=== PATIENT | female | born 1965 | race Caucasian/White ===

== ENCOUNTER → 2016-08-07 | Outpatient (CLI) | payer OTHER ==
--- NOTE | 2016-08-08 10:38 | US ---
Procedure: US ABDOMEN Exam Date: 08/07/2016 Ordering Provider: ISIDRO FAIR Clinical Indication: Abdominal pain Comparison: 12/03/2011 Technique: Real-time ultrasonography was obtained over the abdominal viscera and territory service representative images were recorded. Findings: The liver is normal in size and contour. There is normal echogenicity throughout the liver. There are no intrahepatic masses. There is no intrahepatic ductal dilatation. The gallbladder is normal in size and appearance. There are no gallstones. There is no gallbladder wall thickening or pericholecystic fluid. The extrahepatic common duct is normal in size measuring 2 mm. The spleen is normal in size and contour. There is normal internal echogenicity of the spleen. There are no splenic masses. The visualized portions of the pancreas are normal. The aorta has a normal appearance. The right kidney is normal in size and contour. The right kidney measures 10.2 cm in bipolar length. Cortical thickness and echogenicity are normal. There are no masses, calculi, or hydronephrosis. The left kidney is normal in size and contour. The left kidney measures 11.3 cm in bipolar length. Cortical thickness and echogenicity are normal. There are no masses, calculi, or hydronephrosis. There is no ascites. Impression: Negative abdominal ultrasound. Electronically signed by: Raúl May MD 08/08/2016 10:37 AM CDT
--- NOTE | 2016-08-08 15:31 | US ---
EXAM DESCRIPTION: Pelvis Transvaginal CLINICAL HISTORY: 51 years Female, V72.31 COMPARISON: None. FINDINGS: Transvaginal sonography demonstrates a normally positioned uterus through the decompressed bladder with the cervix appearing closed and normal in appearance. The uterus measures 7.5 x 2.3 x 2.4 cm. The endometrial stripe is estimated at 4 mm. The right ovary is 1.9 x 1.9 x 0.9 cm and the left ovary is 3.3 x 1.6 x 2.6 cm. No dominant solid or cystic mass is seen. No free fluid in the cul-de-sac is noted. IMPRESSION: Essentially normal transvaginal pelvic sonography with small normal ovaries and uterus without focal mass. Electronically signed by: Ta Izaguirre MD 08/08/2016 3:29 PM CDT
== END ==
LOC: US 09:26
PROVIDERS: ATTEND Nurse Practitioner Family
DX: R10.84 Generalized abdominal pain (principal); R06.02 Shortness of breath; Z01.419 Encounter for gynecological examination (general) (routine) without abnormal findings

== ENCOUNTER → 2016-10-09 | Outpatient (CLI) | payer OTHER ==
--- NOTE | 2016-10-10 13:42 | MAM ---
EXAM DESCRIPTION: Screening Mammogram,Bilateral CLINICAL HISTORY: 51 yearsFemaleSCREENING. No family history of breast cancer. Postmenopausal. Currently on HRT. Bilateral breast augmentation. COMPARISON: Digital 2-D screening bilateral study 08/30/2015. No prior reports available. TECHNIQUE: Bilateral CC and MLO projection full-field images, and bilateral Robles Implant Displacement images. Digital screening mammographic technique. CAD was utilized. FINDINGS: The breast parenchymal density pattern is: Heterogeneously dense breast tissue, which may obscure small masses. No skin thickening or nipple retraction bilaterally. Bilateral subpectoral saline implants. Implant capsules where seen. Bilateral solitary microcalcifications. No focal, stellate mass or density no focal asymmetry, and no suspicious microcalcifications bilaterally. Stable mammograms compared to the prior study August 2015. IMPRESSION: BI-RADS CATEGORY: 2 - BENIGN FINDINGS. FOLLOW UP: Routine digital bilateral screening, one year interval from September 2016. Written communication explaining the findings and follow-up, will be mailed to the patient and referring health care provider. According to the [employer], yearly mammograms are recommended starting at age 40 and continuing as long as a woman is in good health. Any breast change noted on a breast self-exam should be reported promptly to the patient's healthcare provider. Breast MRI is recommended for women with an approximately 20-25% or greater lifetime risk of breast cancer, including women with a strong family history of breast or ovarian cancer and women who have been treated for Hodgkin's disease. A negative mammographic report should not delay tissue diagnosis in patients with significant clinical history or physical findings. Extremely dense breast tissue limits the sensitivity of digital mammography. Written communication explaining the results and follow-up will be mailed to the patient and referring care provider. Electronically signed by: Karri Goss MD 10/10/2016 1:41 PM CDT Workstation: [id number]
== END ==
LOC: MAMMO 13:30
PROVIDERS: ATTEND Nurse Practitioner Family
DX: Z12.31 Encounter for screening mammogram for malignant neoplasm of breast (principal)

== ENCOUNTER → 2017-09-10 | Outpatient (CLI) | payer OTHER ==
--- NOTE | 2017-09-10 17:13 | MRI ---
EXAM DESCRIPTION: Brain w/o Contrast: MRI. CLINICAL HISTORY: R 49. Headache. COMPARISON: CT scan of the head without contrast 08/04/2006. TECHNIQUE: Multiplanar, high-field MRI unit, multiple diffusion sequences, multiple conventional sequences without contrast. FINDINGS: Bilateral small foci of hyperintense FLAIR and T2-weighted signal in the bilateral periventricular white matter abutting the frontal horns, subcortical white matter right frontal lobe, and subcortical white matter left frontal lobe at the level of the ventricles. Also subcortical white matter right parietal lobe in the frontoparietal sensorimotor region. No diffusion restriction.. No hemorrhage, no cerebral edema, no mass-effect. Small focal lesion similar to the above lesions in the insular cortex or external capsule on the left basal ganglia. Normal signal in the brainstem and cerebellar hemispheres. No hemorrhage, no cerebral edema, no mass-effect. Concordance of the diffusion and non-diffusion sequences with no diffusion restriction. Cortical sulci, ventricles, and other CSF spaces, and the subdural spaces are normally configured. No effacement or displacement. No midline shift. No extra-axial hemorrhage. Normal flow signal void in the major vessels of the chilkat Lester, and the venous sinuses. IACs are symmetric bilaterally. Normal signal in the bilateral mastoid air cells. No mass effect in the bilateral cerebellopontine angles. Pituitary gland occupies most of the sella. Base of the cerebellar tonsils is at the level of the foramen magnum. Minimal mucoperiosteal thickening in the bilateral with thickening of the nasal turbinates.. The bony calvarium is intact. Magnetic susceptibility partially obscures the diffusion images and FLAIR images posterior to the left ear IMPRESSION: 1. Multiple lesions in the periventricular white matter and subcortical white matter bilaterally mostly in the frontal lobes. No hemorrhage, no mass effect, no diffusion restriction. Differential includes early cerebral microvascular disease, demyelinating process such as multiple sclerosis, migraine headaches, vasculitis, or inflammatory process. Consider follow-up study with IV gadolinium contrast as well as CSF protein testing for multiple sclerosis. 2. Normal noncontrast MRI diffusion study with no evidence of acute or subacute infarction. 3. Minimal chronic paranasal sinusitis. Electronically signed by: Karri Goss MD 09/10/2017 5:12 PM CDT
== END ==
LOC: MRI 13:00
PROVIDERS: ATTEND Family Medicine
DX: R51 Headache (principal)

== ENCOUNTER → 2017-10-21 | Outpatient (CLI) | payer OTHER ==
--- NOTE | 2017-10-23 11:45 | MAM ---
EXAM DESCRIPTION: 3D Screening BILATERAL : Digital Mammography. CLINICAL HISTORY: 52 years Female SCREEN . No complaints. No personal history or family history of breast cancer. Childbirth. Postmenopausal. Currently on HRT. Bilateral breast augmentation. Lifetime risk of developing breast cancer (Tyrer-Cuzick model) is 6.1 %. COMPARISON: 2-D bilateral screening digital study 10/09/2016. TECHNIQUE: Bilateral CC and MLO projection full-field images, with Robles Implant Displacement Digital tomosynthesis mammographic technique. Bilateral digital 2-D full-field MLO images. CAD not utilized. Bilateral 2-D digital full-field images, MLO and CC projections, non-displaced, with CAD. FINDINGS: The breast parenchymal density pattern is: Heterogeneously dense breast tissue, which may obscure small masses. No skin thickening or nipple retraction. Bilateral solitary microcalcifications. Bilateral subpectoral saline implants. Capsules appear intact where seen. No new focal, stellate mass or density, focal asymmetry , and no suspicious microcalcifications bilaterally. Stable mammograms compared to prior study. Taking into account, differences in mammographic technique. IMPRESSION: Benign exam. BIRAD CATEGORY: 2 BENIGN FINDINGS. RECOMMENDATIONS: FOLLOW UP: Routine digital bilateral screening, one year interval from September 2017. Written communication explaining the IMPRESSION and follow-up, will be mailed to the patient and referring health care provider. According to the [employer], yearly mammograms are recommended starting at age 40 and continuing as long as a woman is in good health. Any breast change noted on a breast self-exam should be reported promptly to the patient's healthcare provider. Breast MRI is recommended for women with an approximately 20-25% or greater lifetime risk of breast cancer, including women with a strong family history of breast or ovarian cancer and women who have been treated for Hodgkin's disease. A negative mammographic report should not delay tissue diagnosis in patients with significant clinical history or physical findings. Extremely dense breast tissue limits the sensitivity of digital mammography. Electronically signed by: Karri Goss MD 10/23/2017 11:43 AM CDT
== END ==
LOC: MAMMO 11:30
PROVIDERS: ATTEND Family Medicine
DX: Z12.31 Encounter for screening mammogram for malignant neoplasm of breast (principal)

== ENCOUNTER → 2018-04-07 | Outpatient (CLI) | payer OTHER ==
--- NOTE | 2018-04-07 15:45 | US ---
EXAM DESCRIPTION: Pelvis Transvaginal: Ultrasound. CLINICAL HISTORY: 52 years Female Z01.419. Pelvic pain and fullness. Bloating. Dyspareunia. COMPARISON: None. TECHNIQUE: Transcutaneous scanning through the urine filled bladder. Endovaginal scanning. [place]-scale and Doppler modes. FINDINGS: Uterus 8.6 x 2.9 x 4.0 cm. Scanning through the bladder. 8.0 x 3.1 x 4.5 cm on the endovaginal examination Endometrial thickness 6.2 mm. The myometrium appears heterogeneous. The uterus is not retroverted. Cervix not well seen. Cul-de-sac contains moderate amount of fluid. Right ovary was not visualized large fluid collection in the right adnexa measuring 8.6 x 2.8 x 5.1 cm with minimal echogenic regions. No solid adnexal mass. Left ovary 1.9 x 1.9 x 1.8 cm. Normal waveform and color Doppler vascularity. No follicles or cysts. No adnexal mass or free fluid. IMPRESSION: 1. Right adnexal fluid collection appears to be mostly confined and tubular. Separate right ovary fallopian tube not visualized. Fluid also in the cul-de-sac. Recommend abdomen pelvis CT scan with IV contrast. 2. Left ovary and uterus unremarkable. No abnormal endometrial thickening. CRITICAL COMMUNICATION: The critical value was discussed directly by phone with Ms. Yaz Benton, family nurse practitioner at approximately 1530 hours, on 04/07/2018. Electronically signed by: Karri Goss MD 04/07/2018 3:43 PM WEIGHT TRAINER
== END ==
LOC: US 13:04
PROVIDERS: ATTEND Nurse Practitioner Family
DX: Z01.419 Encounter for gynecological examination (general) (routine) without abnormal findings (principal)

== ENCOUNTER → 2018-04-08 | Outpatient (CLI) | payer OTHER ==
--- NOTE | 2018-04-08 13:01 | CT ---
EXAM DESCRIPTION: Abdomen/Pelvis w/Contrast: Computed Tomography. CLINICAL HISTORY: 52 years Female ABNORMAL SONO COMPARISON: None. TECHNIQUE: Spiral-axial scans at 5 x 5 mm intervals through the abdomen and pelvis, after nonionic IV contrast and water-soluble oral contrast. Coronal and sagittal 2.0 mm reconstructions. Delayed scans, liver through the pelvis. Axial-spiral 5mm. No adverse reactions. Total Exam DLP: 623.24 mGy-cm. This exam was performed according to our departmental dose-optimization program which includes automated exposure control, adjustment of the mA and/or kV according to patient size and/or use of iterative reconstruction technique; to reduce radiation dose to as low as reasonably achievable (ALARA). FINDINGS: Pelvic Organs: Circumscribed elongated fluid collection, tubal ligation shape with thin capsule extending from the right adnexa posteriorly and superiorly above the ureters and urinary bladder with mass effect on the small bowel and abutting the sigmoid colon. Overall length is approximately 15 cm, and slightly more than 3 cm at its widest point. No other fluid is noted in the cul-de-sac or the bilateral adnexa. Possible 1 cm cyst in the right ovary. No abnormal enhancement. Left ovary in the left adnexa appears unremarkable. No fatty stranding or fascial thickening. Small Bowel: Minimal gas and fluid but no distention. No air-fluid levels. Terminal Ileum/Cecum: Normal caliber of the appendix and normal density of the surrounding fat, otherwise unremarkable. Colon: Diffuse fecal material almost entire length. No complications. Lung bases and pleura: Negative. Bilateral breast implants. Liver, Stomach, Spleen, Adrenal Glands: Unremarkable. Pancreas, Gallbladder, Ducts: Gallbladder visualized. Duct and pancreas unremarkable. Atherosclerotic calcifications in branches of the celiac axis. Kidneys and Ureters: Negative. Mesentery: Fluid mass in the adnexa as described. No free fluid elsewhere fatty stranding fascial thickening or free air. Aorta: Moderate atherosclerotic calcification anterior infrarenal aorta bilateral common iliac arteries appears advanced for patient's age. Also in the branches of the celiac axis as described. Spine and Bony Pelvis: Unremarkable. Abdominal Wall/Back Soft Tissues: Minimal diastases of the midline abdominal wall at the umbilicus, with anterior protrusion of the abdominal cavity, but no bowel containing hernia. IMPRESSION: 1. Elongated circumscribed fluid collection with thin capsule, minimal delayed enhancement of the capsule but not the fluid. Mass effect on adjacent organs but no adjacent free fluid, fascial thickening, fatty stranding or abnormal contrast enhancement. This is most likely a hydrosalpinx. Less likely would be a free fluid collection confined by fibrosis. Surgical consult recommended. 2. Atherosclerotic disease in the mid and distal aorta and some of the major branch vessels appears advanced for patient's age. 3. Minimal diastases of the midline abdominal wall at the umbilicus with anterior protrusion of the abdominal cavity but no definite herniation. CRITICAL COMMUNICATION: The critical value was discussed directly by phone with Ms. Yaz Benton, family nurse practitioner at approximately 1250 hours, on April 08, 2018. 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
== END ==
LOC: US 09:17
PROVIDERS: ATTEND Nurse Practitioner Family
DX: Z01.419 Encounter for gynecological examination (general) (routine) without abnormal findings (principal); I70.0 Atherosclerosis of aorta

== ENCOUNTER → 2018-09-14 | Outpatient (CLI) | payer OTHER ==
--- NOTE | 2018-09-15 11:54 | US ---
EXAM DESCRIPTION: Abdomen,Complete: Ultrasound. CLINICAL HISTORY: GEN ABD PN COMPARISON: CT scan abdomen and pelvis 04/08/2018. TECHNIQUE: Transabdominal scannin-dimensional and Doppler modes. FINDINGS: Gallbladder: Normal size and normal echogenicity. No wall thickening or fluid. Nontender with transducer pressure. Common bile duct: 0.38 cm caliber not dilated. Liver: Long axis right lobe 15.1 cm. No focal lesions. Normal echogenicity. Normal caliber and direction of portal venous flow. No dilated ducts. Smooth capsule with no ascites. Pancreas: Included segments normal echogenicity and duct not seen.. Abdominal aorta: Normal caliber from the proximal segment to the distal bifurcation. IVC: visualized; normal caliber. Spleen normal echogenicity; long axis measurement is 10.9 cm. Right kidney: 9.8 cm long axis. Normal cortical thickness and echogenicity. No hydronephrosis, echogenic stones, or perinephric fluid. Left kidney: 10.5 cm long axis. Normal cortical thickness and echogenicity. No hydronephrosis, echogenic stones, or perinephric fluid. IMPRESSION: Normal ultrasound of the abdomen. Electronically signed by: Karri Goss MD 09/15/2018 11:52 AM CDT
== END ==
LOC: US 14:46
PROVIDERS: ATTEND Nurse Practitioner Family
DX: R10.84 Generalized abdominal pain (principal)

== ENCOUNTER → 2019-07-04 | Outpatient (CLI) | payer OTHER | LOC: GMAJ 16:39 | PROVIDERS: ATTEND Family Medicine | DX: M25.541 Pain in joints of right hand (principal) ==

== ENCOUNTER → 2019-08-17 | Outpatient (CLI) | payer OTHER ==
--- NOTE | 2019-08-24 11:57 | MAM ---
EXAM DESCRIPTION: 3D Screening BILATERAL : Digital Mammography. CLINICAL HISTORY: 54 years Female routine screen . No complaints. No personal or family history of breast cancer. Menarche age 11. Childbirth age 13. Menopause age 34. Current HRT. Bilateral breast augmentation. Lifetime risk of developing breast cancer (Tyrer-Cuzick model)(%): Not calculated COMPARISON: Bilateral screening breast tomosynthesis with Robles implant displacement technique September 2017 and 2-D bilateral digital screening with Robles implant displacement technique September 2016. TECHNIQUE: Bilateral CC and MLO projection full-field images, with Robles Implant Displacement digital tomosynthesis mammographic technique. Bilateral 2-D digital full-field images, MLO and CC projections, non-displaced. Bilateral digital 2-D full-field MLO images. Implant displaced. CAD available for 2-D images. FINDINGS: The breast parenchymal density pattern is: Heterogeneously dense breast tissue, which may obscure small masses. No skin thickening or nipple retraction. Solitary microcalcifications. Bilateral retro-muscular implants. Capsules appear intact where seen and stable since the prior study. No new focal, stellate mass or density, focal asymmetry , and no suspicious microcalcifications . Stable mammograms compared to prior study. IMPRESSION: Benign exam. BIRAD CATEGORY: 2 BENIGN FINDINGS. RECOMMENDATIONS: FOLLOW UP: Routine digital bilateral mammographic screening, one year interval from July 2019. Written communication explaining the IMPRESSION and follow-up, will be mailed to the patient and referring health care provider. According to the [employer], yearly mammograms are recommended starting at age 40 and continuing as long as a woman is in good health. Any breast change noted on a breast self-exam should be reported promptly to the patient's healthcare provider. Breast MRI is recommended for women with an approximately 20-25% or greater lifetime risk of breast cancer, including women with a strong family history of breast or ovarian cancer and women who have been treated for Hodgkin's disease. A negative mammographic report should not delay tissue diagnosis in patients with significant clinical history or physical findings. Extremely dense breast tissue limits the sensitivity of digital mammography. Electronically signed by: Krari Goss MD 08/24/2019 11:55 AM CDT
== END ==
LOC: MAMMO 16:10
PROVIDERS: ATTEND Nurse Practitioner Family
DX: Z12.31 Encounter for screening mammogram for malignant neoplasm of breast (principal)

== ENCOUNTER → 2019-12-19 | Outpatient (CLI) | payer OTHER | LOC: GMAJ 16:49 | PROVIDERS: ATTEND Family Medicine | DX: E34.8 Other specified endocrine disorders (principal); E53.8 Deficiency of other specified B group vitamins; Z79.899 Other long term (current) drug therapy; I65.29 Occlusion and stenosis of unspecified carotid artery; I50.9 Heart failure, unspecified ==